=== PATIENT | female | born 1945 | race Caucasian/White ===

== ENCOUNTER 2025-03-17 11:01 | Emergency (ER) | payer MEDICARE, OTHER, SELFPAY ==
[2025-03-17] VITALS (108 sets, daily range): BP systolic 142–223; BP diastolic 68–156; PULSE 90–119; TEMP 36.6–37.2; O2SAT 87–97; BMI 31.2
--- NOTE | 2025-03-17 11:24 | ECG_ITS ---
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 Measurements Intervals [place] Rate: 105 P: 52 CO: 152 QRS: 13 QRSD: 70 T: 42 QT: 328 QTc: 389 Interpretive Statements 1120 Sinus tachycardia 8102 Low QRS voltage in chest leads abnormal ECG No previous ECG available for comparison Electronically Signed On 03-18-2025 12:35:25 EDT by JOSE BRANDT M.D.
--- NOTE | 2025-03-17 11:28 | ED.GENADUL1 ---
HPI HPI - General Adult General Chief complaint: Back Pain/Injury Stated complaint: BACK PAIN Time Seen by Provider: 03/17/25 11:18 Source: patient Mode of arrival: walk-in Limitations: no limitations History of Present Illness HPI narrative: 79-year-old female presents for back pain and hip pain and shoulder pain. She has had hip and shoulder pain for a long time and states it is due to arthritis. She has had no injury. She has been off of all medications for 2 years because she states her doctor moved out of town and she never got another 1. The only medication that she takes is an iron pill and she is not sure why she takes it. She seemed short of breath to the nursing staff upon arrival and ambulation. Related Data Home Medications ?Medication ?Instructions ?Recorded ?Confirmed No Known Home Medications 03/17/25 03/17/25 Allergies Allergy/AdvReac Type Severity Reaction Status Date / Time No Known Drug Allergies Allergy Verified 03/17/25 11:08 Review of Systems ROS Narrative A ten point review of systems is negative except as noted above. [facility] Medical History (Updated 03/17/25 @ 16:17 by Wilfrido Matute MD) Lump in female breast ?N63.0 - Unspecified lump in unspecified breast (ICD-10) Hypertension ?I10 - Essential (primary) hypertension (ICD-10) Social History Little interest or pleasure in doing things: not at all Feeling down, depressed, or hopeless: not at all Exam Narrative Exam Narrative: Nurses note and vital signs reviewed and patient is not hypoxic. General: The patient appears in no apparent distress. Patient is resting comfortably on cart. Skin: Warm, dry, mild pallor noted. There is no rash noted. Head: Normocephalic, atraumatic Eye: No drainage Ears, Nose, Mouth, and Throat: oral mucosa is moist. Nares patent. Cardiovascular: Regular Rate and Rhythm, mildly tachycardic Respiratory: Patient is in no distress, no accessory muscle use, lungs are clear to auscultation, no wheezing, rales or rhonchi Back: non-tender, no CVA tenderness bilaterally to percussion. GI: Soft and nontender Musculoskeletal: The patient has no evidence of calf tenderness, no pitting edema, symmetrical pulses noted bilaterally Neurological: A&O, normal speech Psychiatric: Cooperative Constitutional Vital Signs, click to edit/add: Last Vital Signs Temp 97.8 F 03/17/25 11:05 Pulse 92 H 03/17/25 13:58 Resp 17 03/17/25 13:58 BP 182/95 H 03/17/25 13:58 Pulse Ox 87 L 03/17/25 13:58 O2 Del Method Room Air 03/17/25 11:05 Course Vital Signs Vital signs: Vital Signs Temperature 97.8 F 03/17/25 11:05 Pulse Rate 119 H 03/17/25 11:05 Respiratory Rate 20 03/17/25 11:05 Blood Pressure 223/92 H 03/17/25 11:05 Pulse Oximetry 95 03/17/25 11:05 Oxygen Delivery Method Room Air 03/17/25 11:05 Temperature 97.8 F 03/17/25 11:05 Pulse Rate 92 H 03/17/25 13:58 Respiratory Rate 17 03/17/25 13:58 Blood Pressure 182/95 H 03/17/25 13:58 Pulse Oximetry 87 L 03/17/25 13:58 Oxygen Delivery Method Room Air 03/17/25 11:05 Medical Decision Making MDM Narrative Medical decision making narrative: The patient was found to be anemic with a hemoglobin of 6.7. She has heme positive dark brown stool. She was given 2 units of blood here. She was not hypotensive but rather was hypertensive and was given IV labetalol for that issue. CAT scan of the abdomen and lumbar spine however showed numerous large intraperitoneal masses with an L2 lytic lesion. This is most likely metastatic cancer and this was discussed thoroughly with the patient. She has a full understanding of the issues. She was also given IV Protonix. I have spoken to Misty, nurse practitioner at [facility] under Dr. Marrero, and the patient is excepted there. She is stable and agreeable for transfer. Differential Diagnosis Differential Diagnosis: Lumbar strain, compression fracture, GI bleed, renal failure Lab Data Lab results reviewed: Yes I reviewed the patient's lab results Labs: Lab Results 03/17/25 03/17/25 03/17/25 Range/Units 11:20 12:02 12:27 WBC 14.6 H (4.0-11.0) 10^3/uL RBC 2.76 L (4.20-5.40) 10^6/uL Hgb 6.7 L* (12.0-16.0) g/dL Hct 22.2 L* (36.0-48.0) % MCV 80.4 L (81.0-99.0) fL MCH 24.3 L (26.7-34.0) pg MCHC 30.2 (29.9-35.2) g/dL RDW 15.9 H (11.0-15.0) % Plt Count 550 H (150-450) 10^3/uL MPV 9.0 L (9.5-13.5) fL Neut % (Auto) 77.7 H (43.0-75.0) % Lymph % (Auto) 11.2 L (20.5-60.0) % [place] % (Auto) 7.2 (1.7-12.0) % Eos % (Auto) 2.3 (0.9-7.0) % Baso % (Auto) 0.6 (0.2-2.0) % Neut # (Auto) 11.3 H (1.4-6.5) 10^3/uL Lymph # (Auto) 1.6 (1.2-3.8) 10^3/uL [place] # (Auto) 1.1 H (0.3-0.8) 10^3/uL Eos # (Auto) 0.3 (0.0-0.7) 10^3/uL Baso # (Auto) 0.1 (0.0-0.1) 10^3/uL Abs Immat Gran (auto) 0.14 H (0.00-0.03) 10^3/uL Imm/Tot Granulo (auto) 1.0 H (0.0-0.5) % PT 11.1 (9.0-11.6) sec INR 1.05 APTT 26.8 (22.3-36.2) sec Sodium 133 L (136-145) mmol/L Potassium 3.5 (3.5-5.1) mmol/L Chloride 98 (98-107) mmol/L Carbon Dioxide 24.2 (21.0-32.0) mmol/L Anion Gap 14.3 BUN 21.0 H (7.0-18.0) mg/dL Creatinine 1.12 H (0.55-1.02) mg/dL Est GFR ( Amer) 57 L (>=60 mL/min/1.73m^2) Est GFR (Non-Af Amer) 47 L (>=60 mL/min/1.73m^2) BUN/Creatinine Ratio 18.8 Glucose 181 H (74-106) mg/dL Calcium 8.8 (8.5-10.1) mg/dL Total Bilirubin 0.3 (0.2-1.0) mg/dL Direct Bilirubin 0.1 (0.0-0.2) mg/dL AST 17 (15-37) U/L ALT 13 L (14-59) U/L Alkaline Phosphatase 84 (46-116) U/L Total Protein 7.2 (6.4-8.2) g/dL Albumin 2.4 L (3.4-5.0) g/dL Globulin 4.8 g/dL Albumin/Globulin Ratio 0.5 Urine Color (YELLOW) Urine Clarity (CLEAR) Urine pH (5.0-9.0) Ur Specific [place] (1.005-1.025) Urine Protein (NEG/TRACE) mg/dL Urine Glucose (UA) (NEGATIVE) mg/dL Urine Ketones (NEGATIVE) mg/dL Urine Occult Blood (NEGATIVE) Urine Nitrite (NEGATIVE) Urine Bilirubin (NEGATIVE) Urine Urobilinogen (0.2-1.0) EU/dL Ur Leukocyte Esterase (NEGATIVE) Urine RBC (0-2) #/HPF Urine WBC (NONE SEEN) #/HPF Ur Squamous Epith Cells (NONE/RARE) #/LPF Ur Transition Epith Cell (NONE SEEN) #/LPF Urine Crystals (None Seen) #/HPF Urine Bacteria (NONE SEEN) #/HPF Urine Casts (NONE SEEN) #/LPF Urine Mucus (NONE SEEN) Ur Culture Indicated? Stool Occult Blood Positive A Blood Type AB Positive Antibody Screen Negative Crossmatch See Detail 03/17/25 Range/Units 13:03 WBC (4.0-11.0) 10^3/uL RBC (4.20-5.40) 10^6/uL Hgb (12.0-16.0) g/dL Hct (36.0-48.0) % MCV (81.0-99.0) fL MCH (26.7-34.0) pg MCHC (29.9-35.2) g/dL RDW (11.0-15.0) % Plt Count (150-450) 10^3/uL MPV (9.5-13.5) fL Neut % (Auto) (43.0-75.0) % Lymph % (Auto) (20.5-60.0) % [place] % (Auto) (1.7-12.0) % Eos % (Auto) (0.9-7.0) % Baso % (Auto) (0.2-2.0) % Neut # (Auto) (1.4-6.5) 10^3/uL Lymph # (Auto) (1.2-3.8) 10^3/uL [place] # (Auto) (0.3-0.8) 10^3/uL Eos # (Auto) (0.0-0.7) 10^3/uL Baso # (Auto) (0.0-0.1) 10^3/uL Abs Immat Gran (auto) (0.00-0.03) 10^3/uL Imm/Tot Granulo (auto) (0.0-0.5) % PT (9.0-11.6) sec INR APTT (22.3-36.2) sec Sodium (136-145) mmol/L Potassium (3.5-5.1) mmol/L Chloride (98-107) mmol/L Carbon Dioxide (21.0-32.0) mmol/L Anion Gap BUN (7.0-18.0) mg/dL Creatinine (0.55-1.02) mg/dL Est GFR ( Amer) (>=60 mL/min/1.73m^2) Est GFR (Non-Af Amer) (>=60 mL/min/1.73m^2) BUN/Creatinine Ratio Glucose (74-106) mg/dL Calcium (8.5-10.1) mg/dL Total Bilirubin (0.2-1.0) mg/dL Direct Bilirubin (0.0-0.2) mg/dL AST (15-37) U/L ALT (14-59) U/L Alkaline Phosphatase (46-116) U/L Total Protein (6.4-8.2) g/dL Albumin (3.4-5.0) g/dL Globulin g/dL Albumin/Globulin Ratio Urine Color Dk. orange (YELLOW) Urine Clarity Sl cloudy (CLEAR) Urine pH Color interference A (5.0-9.0) Ur Specific [place] 1.015 (1.005-1.025) Urine Protein Color interference A (NEG/TRACE) mg/dL Urine Glucose (UA) Color interference A (NEGATIVE) mg/dL Urine Ketones Color interference A (NEGATIVE) mg/dL Urine Occult Blood Color interference A (NEGATIVE) Urine Nitrite Color interference A (NEGATIVE) Urine Bilirubin Color interference A (NEGATIVE) Urine Urobilinogen Color interference A (0.2-1.0) EU/dL Ur Leukocyte Esterase Color interference A (NEGATIVE) Urine RBC >100 A (0-2) #/HPF Urine WBC 75-100 A (NONE SEEN) #/HPF Ur Squamous Epith Cells Rare (NONE/RARE) #/LPF Ur Transition Epith Cell Few A (NONE SEEN) #/LPF Urine Crystals None seen (None Seen) #/HPF Urine Bacteria Small A (NONE SEEN) #/HPF Urine Casts None seen (NONE SEEN) #/LPF Urine Mucus Small A (NONE SEEN) Ur Culture Indicated? [facility] [place] Stool Occult Blood Blood Type Antibody Screen Crossmatch Imaging Data CT abdomen, CT lumbar spine: Radiologist's impression: CT abdomen: Multiple mass lesions consistent with neoplastic process, no features to suggest active GI bleed CT lumbar spine: Lymphadenopathy, lytic lesion L2 vertebral body Chest x-ray: Mild enlarged heart size, no lobar consolidation or edema ECG Data Attestation: I personally reviewed and interpreted this ECG as follows: (EKG on my interpretation shows sinus rhythm with a rate of 105 and no acute change) Discharge Plan Discharge Chief Complaint: Back Pain/Injury Clinical Impression: GI bleed, Anemia, Metastatic cancer [facility]position[facility] Time of Disposition Decision: 16:17 Discharge Location: [facility] Condition: Fair Mode of Transportation: EMS
[2025-03-17 11:29] LABS: Basophils Absolute Auto 0.1 10^3/uL (0.0-0.1); Basophils Percent Auto 0.6 % (0.2-2.0); Eosinophils Absolute Auto 0.3 10^3/uL (0.0-0.7); Eosinophils Percent Auto 2.3 % (0.9-7.0); Immature Granulocytes Abs Auto 0.14 10^3/uL (0.00-0.03); Lymphocytes Absolute Auto 1.6 10^3/uL (1.2-3.8); Lymphocytes Percent Auto 11.2 % (20.5-60.0); Mean Corpuscular HGB Conc 30.2 g/dL (29.9-35.2); Mean Corpuscular Hemoglobin 24.3 pg (26.7-34.0); Mean Corpuscular Volume 80.4 fL (81.0-99.0); Monocytes Absolute Auto 1.1 10^3/uL (0.3-0.8); Monocytes Percent Auto 7.2 % (1.7-12.0); Neutrophils Absolute Auto 11.3 10^3/uL (1.4-6.5); Neutrophils Percent Auto 77.7 % (43.0-75.0); Platelet Count 550 10^3/uL (150-450); Red Blood Count 2.76 10^6/uL (4.20-5.40); Red Cell Distribution Width 15.9 % (11.0-15.0); White Blood Count 14.6 10^3/uL (4.0-11.0)
[2025-03-17 11:34] LABS: Hematocrit 22.2 % (36.0-48.0); Hemoglobin 6.7 g/dL (12.0-16.0)
[2025-03-17 11:48] LABS: Anion Gap 14.3; BUN Creatinine Ratio 18.8; Calcium 8.8 mg/dL (8.5-10.1); Carbon Dioxide 24.2 mmol/L (21.0-32.0); Chloride 98 mmol/L (98-107); Estimated GFR (African America 57 (>=60 mL/min/1.73m^2); Estimated GFR (Non-African Ame 47 (>=60 mL/min/1.73m^2); Glucose 181 mg/dL (74-106); INR 1.05; Partial Thromboplastin Time 26.8 sec (22.3-36.2); Potassium 3.5 mmol/L (3.5-5.1); Prothrombin Time 11.1 sec (9.0-11.6); Sodium 133 mmol/L (136-145)
[2025-03-17 11:51] LABS: Bilirubin Total 0.3 mg/dL (0.2-1.0)
[2025-03-17 11:52] LABS: Alanine Aminotransferase 13 U/L (14-59); Albumin Globulin Ratio 0.5; Albumin Level 2.4 g/dL (3.4-5.0); Alkaline Phosphatase 84 U/L (46-116); Aspartate Amino Transferase 17 U/L (15-37); Bilirubin Direct 0.1 mg/dL (0.0-0.2); Globulin 4.8 g/dL; Total Protein 7.2 g/dL (6.4-8.2)
[2025-03-17 12:16] LABS: Internal Control Within Normal Limits; Occult Blood Positive
[2025-03-17 13:27] LABS: Clarity Urine SL CLOUDY (CLEAR); Color Urine DK. ORANGE (YELLOW); Specific Gravity Urine 1.015 (1.005-1.025)
[2025-03-17 13:37] LABS: Bilirubin Urine COLOR INTERFERENCE (NEGATIVE); Blood Urine COLOR INTERFERENCE (NEGATIVE); Glucose Urine UA COLOR INTERFERENCE mg/dL (NEGATIVE); Ketones Urine COLOR INTERFERENCE mg/dL (NEGATIVE); Leukocyte Esterase Urine COLOR INTERFERENCE (NEGATIVE); Nitrite Urine COLOR INTERFERENCE (NEGATIVE); Protein Urine COLOR INTERFERENCE mg/dL (NEG/TRACE); Urobilinogen Urine COLOR INTERFERENCE EU/dL (0.2-1.0); pH Urine COLOR INTERFERENCE (5.0-9.0)
[2025-03-17 13:39] LABS: WBC Urine 75-100 #/HPF (NONE SEEN)
[2025-03-17 13:40] LABS: Bacteria Urine SMALL #/HPF (NONE SEEN); Cast Seen? NONE SEEN #/LPF (NONE SEEN); Crystals Seen? None Seen #/HPF (None Seen); Mucus Urine SMALL (NONE SEEN); RBC Urine >100 #/HPF (0-2); Squamous Epithelial Cell Urine RARE #/LPF (NONE/RARE); Transitional Epi Cells Urine FEW #/LPF (NONE SEEN); Urine Culture Indicated YES-FRMC
[2025-03-17] MEDS: LABETALOL HCL 20 MG/4 ML SYRINGE 10 MG IVP (13:54)
[2025-03-17] MEDS: CEFTRIAXONE 1,000 MG in 0.9 % SODIUM CHLORIDE 50 ML 100 MG IV (15:36)
[2025-03-17] MEDS: PANTOPRAZOLE SODIUM 40 MG VIAL IV (15:36)
[2025-03-17] MEDS: 0.9 % SODIUM CHLORIDE 500 ML 250 ML IV (15:36)
--- NOTE | 2025-03-17 17:30 | PC.NURSE ---
pt given meal tray
[2025-03-17] MEDS: MORPHINE SULFATE 2 MG/ML SYRINGE IV ×2 (18:23→22:23)
[2025-03-17] MEDS: LABETALOL HCL 20 MG/4 ML SYRINGE IVP (23:45)
[2025-03-18] VITALS (16 sets, daily range): BP systolic 170–198; BP diastolic 87–93; PULSE 89–97; O2SAT 90
[2025-03-18] MEDS: MORPHINE SULFATE 2 MG/ML SYRINGE IV (00:47)
[2025-03-18] MEDS: MORPHINE SULFATE 4 MG/ML VIAL IV (01:45)
== END 2025-03-18 01:50 | disposition short-term general hospital (02) ==
PROVIDERS: Emergency Provider Emergency Medicine
DX: K92.2 Gastrointestinal hemorrhage, unspecified (principal); D64.9 Anemia, unspecified; R06.02 Shortness of breath; C79.9 Secondary malignant neoplasm of unspecified site
CPT/HCPCS: 36415; 36430; 71045; 72131; 74177; 80048; 80076; 81001; 85025; 85610; 85730; 86850; 86900; 86901; 86923; 87086; 93005; 96365; 96375; 96376; 99285; G0328; J0696; J1920; J2270; P9016; Q9967

== ENCOUNTER 2025-04-11 16:18 | Inpatient (IN) | payer MEDICARE, OTHER, SELFPAY ==
[2025-04-11] VITALS (7 sets, daily range): BP systolic 121–143; BP diastolic 49–73; PULSE 77; TEMP 36.8; O2SAT 97–98; BMI 35.3; BMI 22.7
--- NOTE | 2025-04-11 16:34 | CT_ITS ---
The [address] [address] Patient Name: MALLIKA CRAWFORD MRN: [id number] date: 1945 Sex: F Assigned Patient Location: ER Current Patient Location: [facility] Accession/Order Number: [id number] Exam Date: 04/11/2025 17:09 Report Date: 04/11/2025 17:14 At the request of: CONNER CADENA NP Procedure: CT head/brain wo con CT head/brain wo con 04/11/2025 4:56 PM SIGNS AND SYMPTOMS: ^ams TECHNIQUE:Multi-detector CT axial slices of the brain were obtained without IV contrast. CT was performed with one or more of the following dose reduction techniques: Automated exposure control, adjustment of the mA and/or kV according to patient size, or use of iterative reconstruction technique. COMPARISON: None. FINDINGS: There is no shift of the midline structures, acute intracranial bleeding, mass effects, or evidence of acute ischemia. There is a calcified dural based extra-axial structure along the lateral aspect of the right middle temporal fossa consistent with a meningioma. This measures 1.4 cm in greatest dimension. Smaller calcified meningioma is noted along the posterior margin of the tentorium on the left measuring 5 mm in greatest dimension. There is periventricular white matter hypoattenuation. There is mild age-related cortical atrophy. Atherosclerotic changes are noted in the intracranial segments of the internal carotid arteries. The ventricular system is normal in size. The brainstem and the cerebellum are unremarkable. The visualized intraorbital contents, the visualized paranasal sinuses, and the infratemporal soft tissues show no acute abnormality. Small bilateral mastoid and middle ear effusions are present. The osseous structures in the skull base and the calvarium show no abnormality. There is a 2.1 cm soft tissue attenuating structure in the left parietal scalp which is of uncertain etiology. CT/CT head/brain wo con IMPRESSION: No acute intracranial pathology. 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 Small bilateral mastoid and middle ear effusions are present. There is a 2.1 cm soft tissue attenuating structure in the left parietal scalp which is of uncertain etiology. Calcified suspected meningiomas are present. Impression dictated by: Corey Rasmussen M.D. 04/11/2025 5:14 PM Dictation Location: [place] [address] Electronically authenticated by: [id number] Y Date: 04/11/2025 17:14
--- NOTE | 2025-04-11 16:34 | XR_ITS ---
[address] [address] Patient Name: MALLIKA CRAWFORD MRN: [id number] date: 1945 Sex: F Assigned Patient Location: ER Current Patient Location: ED.MAIN Accession/Order Number: [id number] Exam Date: 04/11/2025 17:07 Report Date: 04/11/2025 17:09 At the request of: CONNER CADENA NP Procedure: XR chest 1V XR chest 1V 04/11/2025 4:51 PM SIGNS AND SYMPTOMS: ^ams ^Y PROTOCOL: Frontal radiograph of the chest COMPARISON: 03/17/2025 FINDINGS: The trachea is midline. The heart and mediastinal structures are within normal limits. Mild platelike atelectasis or scarring is noted in the right lung base. The lung parenchyma is clear otherwise. The bony thorax is intact. Degenerative changes are noted in the shoulders and thoracic spine. XR/XR chest 1V IMPRESSION: Mild platelike atelectasis or scarring is noted in the right lung base. The lung parenchyma is clear otherwise. Impression dictated by: Corey Rasmussen M.D. 04/11/2025 5:09 PM Dictation Location: [place] [address] Electronically authenticated by: [id number] Y Date: 04/11/2025 17:09
--- NOTE | 2025-04-11 16:37 | ED.GENADUL1 ---
HPI HPI - General Adult General Chief complaint: Weakness Stated complaint: weakness Time Seen by Provider: 04/11/25 16:25 Source: family Mode of arrival: ambulance History of Present Illness HPI narrative: Patient is a 79-year-old female who presents to the emergency department today for evaluation concerns for altered mental status and refusing oral intake. Patient is at a acute rehab facility and was brought in by EMS. Patient is not able to provide much history due to current medical state and is mostly answering only yes or no questions. Patient's daughter is at the bedside and states within the past month she has developed back pain secondary to degenerative changes. 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 Daughter states she was discharged from [facility] to an acute rehab facility with the plan to have outpatient follow-up with the [facility]. Patient's daughter reports she had an appointment with the [facility] on Wednesday with the plan to start immunotherapy however the patient's daughter mentions since then she has been progressively more weak and confused since yesterday does not recognize the daughter. Patient does endorse some abdominal pain and per review of MAR from nursing facility patient did receive oxycodone at 1 AM. Both the patient and her daughter deny any additional sick symptoms of fever/chills, cough/cold symptoms, vomiting, or diarrhea. Any chest pain or shortness of breath. Related Data Home Medications ?Medication ?Instructions ?Recorded ?Confirmed acetaminophen 500 mg capsule 1,000 mg PO Q6H PRN pain 04/11/25 04/11/25 carvedilol 25 mg tablet (Coreg) 25 mg PO BID 04/11/25 04/11/25 coenzyme Q10 100 mg capsule (Co 100 mg PO DAILY 04/11/25 04/11/25 Q-10) docusate sodium 100 mg capsule 100 mg PO BID 04/11/25 04/11/25 (Colace) guaifenesin 600 mg tablet, 600 mg PO BID PRN congestion 04/11/25 04/11/25 extended release 12 hr ipratropium 0.5 mg-albuterol 3 mg 3 ml inhalation Q4H PRN shortness 06/04/25 06/04/25 (2.5 mg base)/3 mL nebulization of breath soln lidocaine 4 % topical patch 1 patch topical DAILY PRN pain 04/11/25 04/11/25 (Lidocare) naloxone 4 mg/actuation nasal 1 spray intranasal Q2M PRN opioid 04/11/25 04/11/25 spray (Narcan) analgesic ondansetron 4 mg disintegrating 4 mg PO TID-QID PRN nausea and 04/11/25 04/11/25 tablet vomiting oxycodone 5 mg tablet 2.5 mg PO Q6H 04/11/25 04/11/25 pantoprazole 40 mg tablet,delayed 40 mg PO BID 04/11/25 04/11/25 release polyethylene glycol 3350 17 17 g PO DAILY 04/11/25 04/11/25 gram/dose oral powder (Miralax) Allergies Allergy/AdvReac Type Severity Reaction Status Date / Time No Known Drug Allergies Allergy Verified 04/11/25 16:24 Opioid HPI Opioid Management Most Recent Opioid Data: Last Pain Scale 8 03/18/25, 01:34 Review of Systems ROS Narrative ROS limited due to patient's mental capacity, some history and ROS provided by patient's daughter who was at the bedside [facility] Medical History (Updated 04/11/25 @ 18:33 by Yulisa Whelan RN) Acute hemorrhoid ?K64.9 - Unspecified hemorrhoids (ICD-10) Cardiac murmur ?R01.1 - Cardiac murmur, unspecified (ICD-10) Diverticulitis ?K57.92 - Diverticulitis of intestine, part unspecified, without perforation or abscess without bleeding (ICD-10) Gastric ulcer ?K25.9 - Gastric ulcer, unspecified as acute or chronic, without hemorrhage or perforation (ICD-10) Type 2 diabetes mellitus ?E11.9 - Type 2 diabetes mellitus without complications (ICD-10) Uterine cancer ?C55 - Malignant neoplasm of uterus, part unspecified (ICD-10) Lump in female breast ?N63.0 - Unspecified lump in unspecified breast (ICD-10) Hypertension ?I10 - Essential (primary) hypertension (ICD-10) Social History Little interest or pleasure in doing things: not at all Feeling down, depressed, or hopeless: not at all Exam Narrative Exam Narrative: Constituational: Awake/ alert, no apparent distress, well hydrated HENMT: normocephalic, external ears normal, moist oral mucous membranes and oropharynx normal Eyes: Pupils 2mm bilaterally, EOMI and conjunctivae normal Neck: ROM intact Chest: inspection of chest normal Respiratory: Normal respiratory effort, clear to auscultation bilaterally Cardio: regular rate and regular rhythm GI: + Large, round, mild generalized discomfort, soft to palpation MSK: No edema, Generalized weakness with inability to reposition herself, +NVI Skin: no rashes or petechiae Neuro: no focal deficits Psych: Withdrawn, sedated Constitutional Vital Signs, click to edit/add: Last Vital Signs Temp 98.3 F 04/11/25 16:24 Pulse 77 04/11/25 16:24 Resp 20 04/11/25 16:24 BP 138/73 04/11/25 16:24 Pulse Ox 97 04/11/25 16:24 O2 Del Method Room Air 04/11/25 16:24 Course Vital Signs Vital signs: Vital Signs Temperature 98.3 F 04/11/25 16:24 Pulse Rate 77 04/11/25 16:24 Respiratory Rate 20 04/11/25 16:24 Blood Pressure 138/73 04/11/25 16:24 Pulse Oximetry 97 04/11/25 16:24 Oxygen Delivery Method Room Air 04/11/25 16:24 Temperature 98.3 F 04/11/25 16:24 Pulse Rate 77 04/11/25 16:24 Respiratory Rate 20 04/11/25 16:24 Blood Pressure 138/73 04/11/25 16:24 Pulse Oximetry 97 04/11/25 16:24 Oxygen Delivery Method Room Air 04/11/25 16:24 Medical Decision Making [facility] Narrative Medical decision making narrative: The patient is a mildly ill-appearing 79-year-old female with significant recent history of diagnosis of uterine cancer with breast metastasis currently at a acute rehab facility who presented to the emergency department today for evaluation concerns for generalized weakness and concerns for reduced oral intake and altered mental status. Initial examination vital signs overall stable with exception patient does have some generalized weakness where she is unable to reposition herself in the bed. She is alert and oriented to herself and is answering some yes and no questions otherwise. She does appear somewhat sedated however she is not in any respiratory distress and vital signs are stable. Has been receiving oxycodone for her abdominal pain. CT head without critical findings. Chest x-ray additionally stable. Labs significant for leukocytosis with WBCs 24, noted anemia with Hgb 7.4, stable per prior trends, HCT 23.9 that additionally is stable per prior trend, no thrombocytopenia. Electrolytes including hepatic function overall stable. Patient noted to have elevated renal function with BUN of 79 and creatinine 2.07. Urinalysis is negative for UTI however patient was unable to void on her own and Bedoya catheter was placed for I/O purposes and per nursing patient did have over 1700 mL output. Patient was reevaluated multiple times while in the emergency department and had no significant changes in condition. She has otherwise remained hemodynamically stable. Clinical impression generalized weakness, AMS-possible oversedation of opioid analgesics, and ZION in the setting of poor oral intake and urinary retention. Discussed patient's condition with [facility] hospitalist [id number] -> accepts patient for admission. Discussed the above findings and recommendations with the patient's family who was present at the bedside. Patient's family is agreeable with the plan to be admitted for further care of the above. Medical Records Medical records reviewed: Yes I reviewed the patient's medical records Lab Data Lab results reviewed: Yes I reviewed the patient's lab results Labs: Lab Results 04/11/25 04/11/25 Range/Units 17:07 17:30 WBC 24.8 H (4.0-11.0) 10^3/uL RBC 2.78 L (4.20-5.40) 10^6/uL Hgb 7.4 L (12.0-16.0) g/dL Hct 23.9 L* (36.0-48.0) % MCV 86.0 (81.0-99.0) fL MCH 26.6 L (26.7-34.0) pg MCHC 31.0 (29.9-35.2) g/dL RDW 19.1 H (11.0-15.0) % Plt Count 432 (150-450) 10^3/uL MPV 9.2 L (9.5-13.5) fL Seg Neuts % (Manual) 85.0 H (43.0-75.0) Band Neutrophils % 5.0 (0-5) % Lymphocytes % (Manual) 8.0 L (20.5-60.0) % Monocytes % (Manual) 1.0 L (1.7-12.0) % Eosinophils % (Manual) 1.0 (0.9-7.0) % Basophils % (Manual) 0.0 L (0.2-2.0) % Neutrophils # (Manual) 21.08 H (1.4-6.5) 10^3/uL Band Neutrophils # 1.2 H (0.0-0.3) 10^3/uL Lymphocytes # (Manual) 1.98 (1.20-3.80) 10^3/uL Monocytes # (Manual) 0.24 L (0.30-0.80) 10^3/uL Eosinophils # (Manual) 0.24 (0.00-0.70) 10^3/uL Basophils # (Manual) 0.00 (0.00-0.10) 10^3/uL Sodium 134 L (136-145) mmol/L Potassium 6.0 H (3.5-5.1) mmol/L Chloride 95 L (98-107) mmol/L Carbon Dioxide 15.4 L (21.0-32.0) mmol/L Anion Gap 29.6 BUN 79.0 H* (7.0-18.0) mg/dL Creatinine 2.07 H (0.55-1.02) mg/dL Est GFR ( Amer) 28 L (>=60 mL/min/1.73m^2) Est GFR (Non-Af Amer) 23 L (>=60 mL/min/1.73m^2) BUN/Creatinine Ratio 38.2 Glucose 109 H (74-106) mg/dL Calcium 9.6 (8.5-10.1) mg/dL Total Bilirubin 0.3 (0.2-1.0) mg/dL AST 27 (15-37) U/L ALT 8 L (14-59) U/L Alkaline Phosphatase 108 (46-116) U/L Total Protein 6.2 L (6.4-8.2) g/dL Albumin 1.7 L (3.4-5.0) g/dL Globulin 4.5 g/dL Albumin/Globulin Ratio 0.4 Urine Color Yellow (YELLOW) Urine Clarity Clear (CLEAR) Urine pH 5.5 (5.0-9.0) Ur Specific [place] 1.015 (1.005-1.025) Urine Protein Negative (NEG/TRACE) mg/dL Urine Glucose (UA) Negative (NEGATIVE) mg/dL Urine Ketones Negative (NEGATIVE) mg/dL Urine Occult Blood Negative (NEGATIVE) Urine Nitrite Negative (NEGATIVE) Urine Bilirubin Negative (NEGATIVE) Urine Urobilinogen 0.2 (0.2-1.0) EU/dL Ur Leukocyte Esterase Negative (NEGATIVE) Urine RBC 0-2 (0-2) #/HPF Urine WBC None seen (NONE SEEN) #/HPF Ur Squamous Epith Cells None seen (NONE/RARE) #/LPF Urine Crystals None seen (None Seen) #/HPF Urine Bacteria None seen (NONE SEEN) #/HPF Urine Casts None seen (NONE SEEN) #/LPF Urine Mucus None seen (NONE SEEN) Ur Culture Indicated? No Imaging Data Chest x-ray: Attestation: I have reviewed the pertinent imaging results. Radiologist's impression: ITS Impressions Chest X-Ray 04/11/25 16:34 IMPRESSION: Mild platelike atelectasis or scarring is noted in the right lung base. The lung parenchyma is clear otherwise. Impression dictated by: Corey Rasmussen M.D. 04/11/2025 5:09 PM Dictation Location: [facility] Electronically authenticated by: [id number] Y Date: 04/11/2025 17:[address] 04/11/25 16:34 IMPRESSION: No acute intracranial pathology. 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 Small bilateral mastoid and middle ear effusions are present. There is a 2.1 cm soft tissue attenuating structure in the left parietal scalp which is of uncertain etiology. Calcified suspected meningiomas are present. Impression dictated by: Corey Rasmussen M.D. 04/11/2025 5:14 PM Dictation Location: [facility] Electronically authenticated by: [id number] Y Date: 04/11/2025 17:14 CT scan - head: Attestation: I have reviewed the pertinent imaging results. Radiologist's impression: ITS Impressions Chest X-Ray 04/11/25 16:34 IMPRESSION: Mild platelike atelectasis or scarring is noted in the right lung base. The lung parenchyma is clear otherwise. Impression dictated by: Corey Rasmussen M.D. 04/11/2025 5:09 PM Dictation Location: [facility] Electronically authenticated by: [id number] Y Date: 04/11/2025 17:[address] 04/11/25 16:34 IMPRESSION: No acute intracranial pathology. 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 Small bilateral mastoid and middle ear effusions are present. There is a 2.1 cm soft tissue attenuating structure in the left parietal scalp which is of uncertain etiology. Calcified suspected meningiomas are present. Impression dictated by: Corey Rasmussen M.D. 04/11/2025 5:14 PM Dictation Location: [facility] Electronically authenticated by: [id number] Y Date: 04/11/2025 17:14 Discharge Plan Discharge Chief Complaint: Weakness Clinical Impression: Generalized weakness, Altered mental status, ZION (acute kidney injury) Prescriptions / Home Meds: No Action acetaminophen 500 mg capsule 1,000 mg PO Q6H PRN (Reason: pain) docusate sodium [Colace] 100 mg capsule 100 mg PO BID coenzyme Q10 [Co Q-10] 100 mg capsule 100 mg PO DAILY carvedilol [Coreg] 25 mg tablet 25 mg PO BID Rx Instructions: must administer with a meal/food guaifenesin 600 mg tablet extended release 12hr 600 mg PO BID PRN (Reason: congestion) lidocaine [Lidocare] 4 % adhesive patch,medicated 1 patch topical DAILY PRN (Reason: pain) ipratropium-albuterol 0.5 mg-3 mg(2.5 mg base)/3 mL solution for nebulization 3 ml inhalation Q4H PRN (Reason: shortness of breath) polyethylene glycol 3350 [Miralax] 17 gram/dose powder 17 g PO DAILY naloxone [Narcan] 4 mg/actuation spray,non-aerosol 1 spray intranasal Q2M PRN (Reason: opioid analgesic) Rx Instructions: spray 1 dose into ONE nostril; alternate nostrils w each dose until help arrives ondansetron 4 mg tablet,disintegrating 4 mg PO TID-QID PRN (Reason: nausea and vomiting) oxycodone 5 mg tablet 2.5 mg PO Q6H Rx Instructions: hold for lethargy pantoprazole 40 mg tablet,delayed release (DR/EC) 40 mg PO BID Print Language: Turkmen Referrals: Physician,Non-Staff, MD [Primary Care Provider] - 1 week
[2025-04-11 17:13] LABS: Hemoglobin 7.4 g/dL (12.0-16.0); Mean Corpuscular Hemoglobin 26.6 pg (26.7-34.0); Mean Platelet Volume 9.2 fL (9.5-13.5); Platelet Count 432 10^3/uL (150-450); Red Blood Count 2.78 10^6/uL (4.20-5.40); Red Cell Distribution Width 19.1 % (11.0-15.0); White Blood Count 24.8 10^3/uL (4.0-11.0)
[2025-04-11 17:23] LABS: Hematocrit 23.9 % (36.0-48.0)
[2025-04-11 17:30] LABS: Band Neutrophils Absolute 1.2 10^3/uL (0.0-0.3); Eosinophils Absolute Manual 0.24 10^3/uL (0.00-0.70); Lymphocytes Absolute Manual 1.98 10^3/uL (1.20-3.80); Monocytes Absolute Manual 0.24 10^3/uL (0.30-0.80); Segmented Neut Absolute Manual 21.08 10^3/uL (1.4-6.5)
[2025-04-11 17:31] LABS: Alanine Aminotransferase 8 U/L (14-59); Albumin Globulin Ratio 0.4; Albumin Level 1.7 g/dL (3.4-5.0); Alkaline Phosphatase 108 U/L (46-116); Anion Gap 29.6; Aspartate Amino Transferase 27 U/L (15-37); BUN Creatinine Ratio 38.2; Bilirubin Total 0.3 mg/dL (0.2-1.0); Calcium 9.6 mg/dL (8.5-10.1); Carbon Dioxide 15.4 mmol/L (21.0-32.0); Chloride 95 mmol/L (98-107); Estimated GFR (African America 28 (>=60 mL/min/1.73m^2); Estimated GFR (Non-African Ame 23 (>=60 mL/min/1.73m^2); Globulin 4.5 g/dL; Glucose 109 mg/dL (74-106); Sodium 134 mmol/L (136-145); Total Protein 6.2 g/dL (6.4-8.2)
[2025-04-11 17:35] LABS: Bilirubin Urine NEGATIVE (NEGATIVE); Blood Urine NEGATIVE (NEGATIVE); Clarity Urine CLEAR (CLEAR); Color Urine YELLOW (YELLOW); Glucose Urine UA NEGATIVE (NEGATIVE); Ketones Urine NEGATIVE (NEGATIVE); Leukocyte Esterase Urine NEGATIVE (NEGATIVE); Nitrite Urine NEGATIVE (NEGATIVE); Protein Urine NEGATIVE (NEG/TRACE); Specific Gravity Urine 1.015 (1.005-1.025); Urobilinogen Urine 0.2 EU/dL (0.2-1.0); pH Urine 5.5 (5.0-9.0)
--- NOTE | 2025-04-11 17:35 | PC.NURSE ---
critical hematocrit of 23.7 reported to Messi DOE
[2025-04-11 17:43] LABS: Bacteria Urine NONE SEEN #/HPF (NONE SEEN); Cast Seen? NONE SEEN #/LPF (NONE SEEN); Crystals Seen? None Seen #/HPF (None Seen); Mucus Urine NONE SEEN (NONE SEEN); RBC Urine 0-2 #/HPF (0-2); Squamous Epithelial Cell Urine NONE SEEN #/LPF (NONE/RARE); Urine Culture Indicated NO; WBC Urine NONE SEEN #/HPF (NONE SEEN)
--- NOTE | 2025-04-11 18:11 | PC.NURSE ---
initial urine outpt from catheter, 1700ml.
[2025-04-11] MEDS: 0.9 % SODIUM CHLORIDE 1,000 ML 1000 ML IV (18:18)
--- NOTE | 2025-04-11 20:26 | CT_ITS ---
The [address] [address] Patient Name: MALLIKA CRAWFORD MRN: [id number] date: 1945 Sex: F Assigned Patient Location: [place] Current Patient Location: [place] Accession/Order Number: [id number] Exam Date: 04/11/2025 21:02 Report Date: 04/11/2025 21:15 At the request of: JANNY SÁNCHEZ MD Procedure: CT abdomen pelvis wo con CT Abdomen and Pelvis withoutcontrast TECHNIQUE: Axial imaging with 2-D reconstruction. . The CT exam was performed using one or more the following dose reduction techniques: Automated exposure control, adjustment of the MA and/or Kv according to patient size, or use of the iterative reconstruction technique. COMPARISON: 03/17/2025 History: Altered mental status. Elevated white blood cell count. History of uterine cancer. History of bilateral lumpectomy LIMITATIONS: None LOWER THORAX mild cardiomegaly and basilar atelectasis. 2.6 cm mass in the right lateral chest wall/breast has developed. LIVER: Hepatic cysts GALLBLADDER: Distended gallbladder measuring up to 5.5 cm. 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 AORTA: No abdominal aortic aneurysm identified. RETROPERITONEUM: A mildly enlarged retroperitoneal lymph nodes. MESENTERY:Unremarkable SMALL BOWEL: The small bowel loops are nondistended. APPENDIX: The appendix is normal. COLON: Unremarkable URINARY BLADDER: Bedoya catheter in urinary bladder. There is mild distention of the urinary bladder. REPRODUCTIVE SYSTEM: Multiple heterogeneous mass lesions central pelvis and left lower pelvis near the left inguinal canal and within the left retroperitoneum in the anterior abdomen consistent with neoplasm. This is increased in size from prior examination suggesting progression. Enlarging inguinal lymph nodes greater on the left. Largest measures up to 3.7 cm. progression of metastatic disease. PNEUMOPERITONEUM: None PERITONEAL FLUID:Mild ascites BONY STRUCTURES: Unremarkable ABDOMINAL WALL: Small fat-containing umbilical hernia. Developing extensive body wall edema. CT/CT abdomen pelvis wo con IMPRESSION: Redemonstration of findings of uterine cancer with an numerous pelvic and lower abdominal masses with interval enlargement suggesting progression. Development of inguinal adenopathy greater on the left measuring up to 3.7 cm. Suggesting progression of disease. Interval distention of the gallbladder with diameter up to 5.5 cm. May consider gallbladder hydrops. Development of 2.6 cm right lateral chest wall/breast mass. Progression of disease. Development of extensive anasarca. Impression dictated by: Rolando Blankenship M.D. 04/11/2025 9:15 PM Dictation Location: [place] [address] Electronically authenticated by: [id number] Y Date: 04/11/2025 21:15
[2025-04-11] MEDS: 0.9 % SODIUM CHLORIDE 1,000 ML 75 ML IV (21:26)
[2025-04-11 23:37] LABS: C Reactive Protein 18.72 mg/dL (<=0.50)
[2025-04-11 23:46] LABS: Lactate/Lactic Acid 0.8 mmol/L (0.4-2.0)
[2025-04-11] MEDS: METRONIDAZOLE/SODIUM CHLORIDE 500 MG/100 ML PREMIX 100 MG IV (23:56)
[2025-04-12] VITALS (16 sets, daily range): BP systolic 115–147; BP diastolic 47–75; PULSE 74–90; TEMP 36.4–37.1; O2SAT 92–95
[2025-04-12] MEDS: CEFTAZIDIME 2,000 MG in 0.9 % SODIUM CHLORIDE 100 ML 200 MG IV ×2 (01:02→20:43)
[2025-04-12 05:31] LABS: Basophils Absolute Auto 0.1 10^3/uL (0.0-0.1); Basophils Percent Auto 0.2 % (0.2-2.0); Eosinophils Absolute Auto 0.2 10^3/uL (0.0-0.7); Eosinophils Percent Auto 0.9 % (0.9-7.0); Immature Granulocytes Abs Auto 0.34 10^3/uL (0.00-0.03); Immature Granulocytes Pct Auto 1.4 % (0.0-0.5); Lymphocytes Absolute Auto 1.3 10^3/uL (1.2-3.8); Lymphocytes Percent Auto 5.4 % (20.5-60.0); Mean Corpuscular HGB Conc 30.5 g/dL (29.9-35.2); Mean Corpuscular Hemoglobin 26.4 pg (26.7-34.0); Mean Corpuscular Volume 86.4 fL (81.0-99.0); Monocytes Absolute Auto 1.9 10^3/uL (0.3-0.8); Monocytes Percent Auto 7.5 % (1.7-12.0); Neutrophils Percent Auto 84.6 % (43.0-75.0); Platelet Count 398 10^3/uL (150-450); Red Blood Count 2.58 10^6/uL (4.20-5.40); Red Cell Distribution Width 19.1 % (11.0-15.0); White Blood Count 24.8 10^3/uL (4.0-11.0)
[2025-04-12 05:46] LABS: INR 1.14; Partial Thromboplastin Time 30.6 sec (22.3-36.2); Prothrombin Time 11.9 sec (9.0-11.6)
[2025-04-12 05:48] LABS: Ammonia 32 umol/L (11-32)
[2025-04-12 05:52] LABS: Alanine Aminotransferase 10 U/L (14-59); Albumin Globulin Ratio 0.4; Albumin Level 1.5 g/dL (3.4-5.0); Alkaline Phosphatase 94 U/L (46-116); Anion Gap 30.9; Aspartate Amino Transferase 25 U/L (15-37); BUN Creatinine Ratio 37.6; Bilirubin Total 0.3 mg/dL (0.2-1.0); Calcium 9.2 mg/dL (8.5-10.1); Carbon Dioxide 10.8 mmol/L (21.0-32.0); Chloride 99 mmol/L (98-107); Estimated GFR (African America 28 (>=60 mL/min/1.73m^2); Estimated GFR (Non-African Ame 23 (>=60 mL/min/1.73m^2); Globulin 4.1 g/dL; Glucose 108 mg/dL (74-106); Magnesium 2.1 mg/dL (1.8-2.4); Potassium 5.7 mmol/L (3.5-5.1); Sodium 135 mmol/L (136-145); Total Protein 5.6 g/dL (6.4-8.2)
[2025-04-12 06:12] LABS: Hematocrit 22.3 % (36.0-48.0); Hemoglobin 6.8 g/dL (12.0-16.0)
--- NOTE | 2025-04-12 06:40 | P.HP_ITS ---
HPI H&P: HPI History of Present Illness Chief complaint: Generalized weakness AMA ZION Narrative: Has a long way, outlined nicely through the emergency room, basically found to have metastatic disease transferred to a tertiary care facility with found to have uterine cancer with metastasis, she was sent to rehab to get stronger so that she could undergo immunotherapy, unable to do immunotherapy while she is in rehab, over the last week patient has had a considerable decline each day with getting weaker and weaker, patient presented to emergency room found to have significant leukocytosis with bandemia and acute kidney injury secondary to sepsis When I saw patient up in the floor this morning, patient is essentially unresponsive, she did respond the severe deep palpation of the abdomen which apparently is tender, not respond to verbal or other stimuli, discussed case with the daughter, patient states that is not her baseline although thought she been progressing over the last week Opioid HPI Opioid Management Most Recent Pain and Opioid Data: Last Pain Scale 8 03/18/25, 01:34 Last Pain Assessment 04/11/25, 21:00 Last ORT Total Score 0 04/11/25, 20:39 Last ORT Risk Category Low Risk 04/11/25, 20:39 Review of Systems ROS Status of ROS 10 or more systems reviewed and unremark able except as noted in history and below [facility] Medical History (Updated 04/12/25 @ 09:56 by Chapo Lagunas MD) Acute hemorrhoid ?K64.9 - Unspecified hemorrhoids (ICD-10) Cardiac murmur ?R01.1 - Cardiac murmur, unspecified (ICD-10) Diverticulitis ?K57.92 - Diverticulitis of intestine, part unspecified, without perforation or abscess without bleeding (ICD-10) Gastric ulcer ?K25.9 - Gastric ulcer, unspecified as acute or chronic, without hemorrhage or perforation (ICD-10) Type 2 diabetes mellitus ?E11.9 - Type 2 diabetes mellitus without complications (ICD-10) Uterine cancer ?C55 - Malignant neoplasm of uterus, part unspecified (ICD-10) Lump in female breast ?N63.0 - Unspecified lump in unspecified breast (ICD-10) Hypertension ?I10 - Essential (primary) hypertension (ICD-10) Social History (Updated 04/11/25 @ 20:12 by Jihan Mccann) Within the past year, how often did you have a drink containing alcohol: never Score interpretation: A score less than 3 is consistent with normal alcohol consumption. Smoking status: Never smoker Non-prescribed substance use: denies use Previous occupational history: retired Are you now , , , , never or living with a partner: don't know Little interest or pleasure in doing things: not at all Feeling down, depressed, or hopeless: not at all Feel stressed/tense/nervous/anxious/difficulty sleeping: not at all Do you think of yourself as: straight/heterosexual Gender Identity: female Meds Home Medications and Allergies Home Medications ?Medication ?Instructions ?Recorded ?Confirmed ?Type acetaminophen 500 mg capsule 1,000 mg PO Q6H PRN pain 04/11/25 04/11/25 History carvedilol 25 mg tablet (Coreg) 25 mg PO BID 04/11/25 04/11/25 History coenzyme Q10 100 mg capsule (Co 100 mg PO DAILY 04/11/25 History Q-10) docusate sodium 100 mg capsule 100 mg PO BID 04/11/25 04/11/25 History (Colace) guaifenesin 600 mg tablet, 600 mg PO BID PRN congestio n 04/11/25 04/11/25 History extended release 12 hr ipratropium 0.5 mg-albuterol 3 mg 3 ml inhalation Q4H PRN shortness 04/11/25 04/11/25 History (2.5 mg base)/3 mL nebulization of breath soln lidocaine 4 % topical patch 1 patch topical DAILY PRN pain 04/11/25 04/11/25 History (Lidocare) naloxone 4 mg/actuation nasal 1 spray intranasal Q2M P RN opioid 04/11/25 04/11/25 History spray (Narcan) analgesic ondansetron 4 mg disintegrating 4 mg PO TID-QID PRN na usea and 04/11/25 04/11/25 History tablet vomiting oxycodone 5 mg tablet 2.5 mg PO Q6H 04/11/2504/11 History pantoprazole 40 mg tablet,delayed 40 mg PO BID 5 04/11/25 History release polyethylene glycol 3350 17 17 g PO DAILY 04/11/2503/02 History gram/dose oral powder (Miralax) Allergies Allergy/AdvReac Type Severity Reaction Status Date / Time No Known Drug Allergies Allergy Verified 04/11/25 16:24 Exam Constitutional Vital Signs, click to edit/add: Last Vital Signs Temp 97.5 F L 04/12/25 04:00 Pulse 88 04/12/25 04:00 Resp 20 04/12/25 04:00 BP 138/54 04/12/25 04:00 Pulse Ox 94 L 04/12/25 04:28 O2 Del Method Room Air 04/12/25 04:28 Documenting provider has reviewed patient's vital signs: yes Common normals: apparent distress (Unresponsive except to painful stimuli) Chest Common normals: inspection of chest normal Respiratory Common normals: abnormal respiratory effort (Mild respiratory distress) and not clear to ascultation bilaterally Auscultation: rales Cardio Common normals: regular rate and regular rhythm; murmurs detected GI Common normals: Normal to inspection, nondistended, normoactive bowel sounds present; negative for soft to palpation (Firm abdomen) and tender (Diffusely tender) Extremity Common normals: abnormal to inspection (1+ edema) Neuro Common normals: not oriented x3 and CN's II-XII not intact bilaterally (Unable to assess) Sensorium/orientation: orientation impaired, lethargic, somnolent and obtunded; not awake, not alert, not oriented to person, not oriented to place and not oriented to time Results Labs Labs: Short CBC 04/11/25 04/12/25 Range/Units 17:07 05:23 WBC 24.8 H 24.8 H (4.0-11.0) 10^3/uL Hgb 7.4 L 6.8 L* (12.0-16.0) g/dL Hct 23.9 L* 22.3 L* (36.0-48.0) % Plt Count 432 398 (150-450) 10^3/uL BMP 04/11/25 04/12/25 17:07 05:23 Sodium 134 L 135 L Potassium 6.0 H 5.7 H Chloride 95 L 99 Carbon Dioxide 15.4 L 10.8 L BUN 79.0 H* 79.0 H* Creatinine 2.07 H 2.10 H Glucose 109 H 108 H Calcium 9.6 9.2 Liver Function 04/11/25 04/12/25 Range/Units 17:07 05:23 Total Bilirubin 0.3 0.3 (0.2-1.0) mg/dL AST 27 25 (15-37) U/L ALT 8 L 10 L (14-59) U/L Alkaline Phosphatase 108 94 (46-116) U/L Albumin 1.7 L 1.5 L (3.4-5.0) g/dL Urine 04/11/25 Range/Units 17:30 Urine Color Yellow (YELLOW) Urine Clarity Clear (CLEAR) Urine pH 5.5 (5.0-9.0) Ur Specific [place] 1.015 (1.005-1.025) Urine Protein Negative (NEG/TRACE) mg/dL Urine Glucose (UA) Negative (NEGATIVE) mg/dL Assessment and Plan Assessment and Plan (1) ZION (acute kidney injury): (2) Altered mental status: (3) Generalized weakness: (4) Metastatic cancer: (5) Anemia: (6) GI bleed: (7) Cardiac murmur: (8) Gastric ulcer: (9) Type 2 diabetes mellitus: (10) Uterine cancer: (11) Hypertension: (12) Hyperphosphatemia: (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: (14) Coagulopathy: (15) Acute pancreatitis: (16) Hyperkalemia: (17) Hyponatremia: (18) Bandemia: (19) Leukocytosis: (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: (21) Bladder outlet obstruction: Plan Admission findings: Altered mental status, leukocytosis with bandemia, hyponatremia, acute kidney injury stage I, (, baseline creatinine 1.12, creatinine on admission of 2.07 which is 184.8% above baseline with decreased urine output in the last 6 hours with palpation at stage I acute kidney injury), hyperkalemia, elevated lipase, elevated INR and an elevated BNP consistent with sepsis causing multisystem organ dysfunction, source of infection likely intra- abdominal with the abdominal exam as outlined above, complicated by immune deficiency from metastatic uterine cancer Altered mental status due to sepsis, likely intra-abdominal source,-leukocytosis persisting, adjusted antibiotic dosing to higher level, blood cultures pending, ultrasound of abdomen is pending, check lactate also, suspicious for possible severe sepsis with positive lactate, initial lactate negative Acute combined congestive heart failure with heart murmur-check echocardiogram concern for cardiac tamponade with metastatic disease, high-sensitivity troponin is negative Hyponatremia secondary to fluid status-monitor daily Acute kidney injury stage I as outlined above-patient will require transfusion we will hold off on further IV fluids in light of the acute combined congestive heart failure Hyperkalemia-improved some, continue to monitor, repeat CHEM profile at noon Acute pancreatitis-discussed with daughter no history of pancreatitis in the past, may be related to metastatic disease, CT scan was unremarkable for the pancreas ultrasound is pending, n.p.o. status Coagulopathy secondary to sepsis as outlined above-monitor daily Bladder outlet obstruction-over 1000 cc-maintain Bedoya catheter Hyperphosphatemia-likely secondary to the acute kidney injury-repeat in a.m. Acute blood loss anemia-likely GI source-check stool for occult blood, type cross and transfuse 2 units History of hypertension-holding current antihypertensive medications CODE STATUS-discussed with daughter, CODE STATUS would be DNR-CCA Admission status: Patient was admitted with altered mental status, progressively worsened overnight time, diagnosed with sepsis, likely severe all the labs are still pending, with acute kidney injury, likely intra-abdominal source with acute pancreatitis, complicated by [place] by immune deficiency secondary to metastatic uterine cancer, medically necessary treatment will span 2 midnights, As a minimum, inpatient status Urinary Catheter Management Urinary Catheter Management Urethral: Cath placed during this visit: yes Urethral indwelling: Yes Reason for continuing: acute urinary retention Insertion date: 04/11/25
[2025-04-12 07:08] LABS: Thyroid Stimulating Hormone 9.684 uIU/mL (0.358-3.740)
[2025-04-12 07:09] LABS: Troponin I High Sensitivity 6.3 pg/mL (4.0-51.3)
--- NOTE | 2025-04-12 07:09 | US_ITS ---
[address] [address] Patient Name: MALLIKA CRAWFORD MRN: [id number] date: 1945 Sex: F Assigned Patient Location: Current Patient Location: Accession/Order Number: [id number] Exam Date: 04/12/2025 10:04 Report Date: 04/12/2025 10:10 At the request of: ALEXANDR BOWMAN MD Procedure: US abdomen limited CLINICAL DATA: Ascites. Dilated gallbladder. History of uterine cancer. LIMITED ABDOMINAL ULTRASOUND COMPARISON: CT 04/11/2025 The gallbladder is hydropic. There is gallbladder sludge though no dominant gallstones. No wall thickening or pericholecystic fluid is seen. No intrahepatic biliary dilatation is evident. The common duct is mildly prominent measuring 7-8 mm no filling defects are visualized within the imaged segment.. The liver is normal in echogenicity. No intrahepatic masses are seen. There is appropriate hepatopetal flow within the main portal vein. The pancreas shows no significant sonographic abnormality. Cursory evaluation of the right kidney reveals no hydronephrosis. A trace amount of free fluid is seen around the liver. US/US abdomen limited IMPRESSION: HYDROPIC GALLBLADDER WITH SLUDGE. MILDLY DISTENDED COMMON DUCT, UNCLEAR ETIOLOGY. LIMITED ULTRASOUND - Ascites survey Real-time ultrasound evaluation of all 4 quadrants and the pelvis was performed. There is a trace of ascites at the right upper quadrant around the liver. No other free fluid is noted. IMPRESSION: MINIMAL, PREDOMINANTLY PERIHEPATIC ASCITES. Impression dictated by: Angelica Ferrer M.D. 04/12/2025 10:10 AM Dictation Location: [place] [address] Electronically authenticated by: [id number] Y Date: 04/12/2025 10:10
--- NOTE | 2025-04-12 07:30 | US_ITS ---
The [address] [address] Patient Name: MALLIKA CRAWFORD MRN: [id number] date: 1945 Sex: F Assigned Patient Location: Current Patient Location: Accession/Order Number: [id number] Exam Date: 04/12/2025 10:04 Report Date: 04/12/2025 10:10 At the request of: MAHSA FIGUEROA NP Procedure: US abdomen limited CLINICAL DATA: Ascites. Dilated gallbladder. History of uterine cancer. LIMITED ABDOMINAL ULTRASOUND COMPARISON: CT 04/11/2025 The gallbladder is hydropic. There is gallbladder sludge though no dominant gallstones. No wall thickening or pericholecystic fluid is seen. No intrahepatic biliary dilatation is evident. The common duct is mildly prominent measuring 7-8 mm no filling defects are visualized within the imaged segment.. The liver is normal in echogenicity. No intrahepatic masses are seen. There is appropriate hepatopetal flow within the main portal vein. The pancreas shows no significant sonographic abnormality. Cursory evaluation of the right kidney reveals no hydronephrosis. A trace amount of free fluid is seen around the liver. US/US right upper quadrant IMPRESSION: HYDROPIC GALLBLADDER WITH SLUDGE. MILDLY DISTENDED COMMON DUCT, UNCLEAR ETIOLOGY. LIMITED ULTRASOUND - Ascites survey Real-time ultrasound evaluation of all 4 quadrants and the pelvis was performed. There is a trace of ascites at the right upper quadrant around the liver. No other free fluid is noted. IMPRESSION: MINIMAL, PREDOMINANTLY PERIHEPATIC ASCITES. Impression dictated by: Angelica Ferrer M.D. 04/12/2025 10:10 AM Dictation Location: [place] [address] Electronically authenticated by: [id number] Y Date: 04/12/2025 10:10
--- NOTE | 2025-04-12 08:19 | PC.NURSE ---
patient is unable to follow commands, could tell commercial lines underwriter first name only, all other words were just mumbling that made no sense. Pt is lethargic, arousable to soft painful stimuli. Patient will look at commercial lines underwriter with blank stare when commercial lines underwriter is talking to pt.
--- NOTE | 2025-04-12 08:39 | CA_ITS ---
Patient Name: MALLIKA CRAWFORD MR#: [id number] : 1945 Exam Date: 04/12/2025 Ordering Doctor: DR ALEXANDR BOWMAN . ECHOCARDIOGRAM REPORT PROCEDURE: CA ECHO DOPPLER COMPLETE INDICATIONS: CHF, diabetes, hypertension COMPARISON: None. DESCRIPTION: COMPLETE ECHOCARDIOGRAM Real-time transthoracic echocardiography with 2D, M-mode, spectral and color flow Doppler performed. QUALITY: Technical quality was good. LEFT VENTRICLE: Normal chamber size. Mild concentric left ventricular hypertrophy. Hyperdynamic systolic function with increased intracavitary gradient up to 32 mmHg. LV EF: Hyperdynamic left ventricular ejection fraction, (75-80%). DIASTOLIC: ATRIAL SEPTUM: LEFT ATRIUM: Normal chamber size. RIGHT ATRIUM: Normal chamber size. RIGHT VENTRICLE: Normal chamber size. Normal right ventricular systolic function. TRICUSPID VALVE: Normal mobility and thickness. No stenosis with trivial regurgitation. Doppler studies reveal mildly (35-45) elevated right sided pressures. RVSP 38 mmHg MITRAL VALVE: Normal mobility and thickness. No evidence of mitral valve stenosis. Mild mitral annular calcification. No mitral regurgitation. AORTIC VALVE: Normal trileaflet appearance. Mildly calcified aortic valve. Normal leaflet mobility. No aortic stenosis. No aortic regurgitation. AORTIC ROOT: Normal diameter and appearance, measuring 3.1 cm. PULMONIC VALVE: Normal thickness and mobility. No stenosis. PERICARDIUM: No evidence of pericardial effusion. IVC: IVC is normal in size, does not fully collapse. PLEURA: CONCLUSION: 1. Mild concentric left ventricular hypertrophy with hyperdynamic systolic function. LVEF is estimated at 75-80%. Increased intracavitary gradients related to hyperdynamic contractility are seen up to 32 mmHg. 2. Normal right ventricular size and systolic function. 3. No significant valvular dysfunction. 4. Mildly elevated right-sided pressures. Adult Echocardiography Procedure Report Left Ventricle LVEDD (3.7 - 5.6 cm): 4.13 cm LVESD (2.2 - 4.0 cm): 2.83 cm LVIVS thickness (0.6 - 1.2 cm): 1.13 cm LVPW thickness (0.5 - 1.0 cm): 1.12 cm e': 0.13 m/s E - e': 6.97 LVOT Max Gradient: 12.32 mm[Hg], 18.27 mm[Hg] LVOT Area (cm2): 2.14 m/s, 1.75 m/s Peak Velocity (LVOT): 2.14 m/s, 1.75 m/s Mean Velocity (LVOT): 1.39 m/s LVOT Diameter 2.02 cm Left Atrium LA Volume Index (2D A2C): 28.90 ml/m2 Left Atrium Systolic Dimension: 4.13 cm Mitral Valve MV E to A Ratio: 0.86 Mitral Valve A-Wave Peak Velocity: 1.09 m/s Mitral Valve E-Wave Peak Velocity: 0.93 m/s Right Ventricle Aorta AO Root Diam: 3.06 cm Aortic Valve AoV Area (Peak Nickolas): 2.65 cm2, 2.65 cm2, 2.17 cm2, 2.17 cm2, 2.36 cm2, 2.36 cm2, 2.88 cm2, 2.88 cm2 AoV Area (VTI): 2.70 cm2, 2.70 cm2 Peak Velocity(Antegrade Flow): 2.60 m/s, 2.39 m/s Peak Gradient(Antegrade Flow): 22.80 mm[Hg], 26.95 mm[Hg] Mean Velocity(Antegrade Flow): 1.76 m/s Mean Gradient(Antegrade Flow): 13.60 mm[Hg] Velocity Time Integral: 57.03 cm Tricuspid Valve Peak Velocity (Regurgitant Flow): 2.73 m/s Pulmonic Valve Peak Gradient: 4.82 mm[Hg], 4.75 mm[Hg] Right Atrium Right Atrium Systolic Pressure: 54.05 ml, 54.05 ml Dictated by: Allen Dominique M.D. on 04/12/2025 at 19:41 Approved by: Allen Dominique M.D. on 04/12/2025 at 19:48
--- NOTE | 2025-04-12 08:40 | CM.NOTE ---
Rounds made with Dr. Lagunas, pt very lethargic. Pt's eyes open but not responding verbally to questions. Dr. Lagunas will reach out to [facility] regarding plan of care.
--- NOTE | 2025-04-12 08:42 | SWNOTE1 ---
SW did reach out to Ch[facility] at [facility] and pt is from there, skilled.
[2025-04-12] MEDS: PANTOPRAZOLE SODIUM 40 MG VIAL IV (09:22)
[2025-04-12] MEDS: LEVOTHYROXINE SODIUM 100 MCG VIAL 12.5 MCG IV (09:23)
[2025-04-12] MEDS: 0.9 % SODIUM CHLORIDE 10 ML VIAL 5 ML IV (09:24)
[2025-04-12] MEDS: METRONIDAZOLE/SODIUM CHLORIDE 500 MG/100 ML PREMIX 100 MG IV ×3 (09:24→21:17)
[2025-04-12] MEDS: 0.9 % SODIUM CHLORIDE 250 ML 10 ML IV ×2 (09:25→09:31)
[2025-04-12] MEDS: DIPHENHYDRAMINE HCL 50 MG/ML VIAL 25 MG IVP (10:38)
[2025-04-12] MEDS: ACETAMINOPHEN 1,000 MG/100 ML PREMIX 400 MG IV (10:38)
[2025-04-12] MEDS: METHYLPREDNISOLONE SOD SUCC PF 40 MG/ML VIAL IVP (10:39)
[2025-04-12 12:14] LABS: Lactate/Lactic Acid 0.6 mmol/L (0.4-2.0)
--- NOTE | 2025-04-12 12:58 | SWNOTE1 ---
SW spoke to nurse and pt's daughter does not want her to return to [facility]. SW to speak with family.
--- NOTE | 2025-04-12 14:54 | SWNOTE1 ---
SW stopped in and spoke to pt's daughter, and pt's 2 sisters. Pt's daughter did voice they do not want her to return to [facility]. She voice when she was in [facility] they had sent referral to [facility] and [facility] and pt ended up wanting to go to [facility]. They now want her to go to [facility]. Pt does already have a 3 day stay from being at [facility]. Daughter did ask about ratios for staff at [facility]. SW unsure and let daughter know that SW can call Lulu or Bryan at [facility] and have them call her and possibly set up a tour for her to go over there and speak with them. Daughter Debbi would like that. GILBERTO advised we will take it one day at a time and SW to send referral to [facility]. GILBERTO called Bryan at [facility] and she will call the daughter and is familiar with pt from looking over referral when she was at [facility]. Referral sent to [facility]. Referral included face sheet, ED note, H&P, provider notes, case management report, nursing notes, diagnostic imaging, med list, and PT/OT notes.
[2025-04-12] MEDS: HYDROMORPHONE HCL 0.5 MG/0.5 ML SYRINGE IV (16:55)
[2025-04-12] MEDS: FUROSEMIDE 40 MG/4 ML VIAL IVP (17:04)
[2025-04-12 17:15] LABS: Hematocrit 32.2 % (36.0-48.0); Hemoglobin 9.9 g/dL (12.0-16.0); Mean Corpuscular HGB Conc 30.7 g/dL (29.9-35.2); Mean Corpuscular Hemoglobin 26.5 pg (26.7-34.0); Mean Corpuscular Volume 86.3 fL (81.0-99.0); Mean Platelet Volume 9.2 fL (9.5-13.5); Platelet Count 422 10^3/uL (150-450); Red Blood Count 3.73 10^6/uL (4.20-5.40); Red Cell Distribution Width 17.9 % (11.0-15.0); White Blood Count 26.9 10^3/uL (4.0-11.0)
[2025-04-12 17:23] LABS: Anion Gap 32.6; BUN Creatinine Ratio 34.9; Calcium 9.7 mg/dL (8.5-10.1); Carbon Dioxide 9.8 mmol/L (21.0-32.0); Chloride 98 mmol/L (98-107); Estimated GFR (African America 25 (>=60 mL/min/1.73m^2); Estimated GFR (Non-African Ame 20 (>=60 mL/min/1.73m^2); Glucose 147 mg/dL (74-106); Sodium 134 mmol/L (136-145)
[2025-04-12 17:35] LABS: Potassium 6.4 mmol/L (3.5-5.1)
[2025-04-12] MEDS: INSULIN REGULAR, HUMAN (100 UNIT/ML) 10 ML MDV 10 UNIT IV (18:25)
[2025-04-12] MEDS: CALCIUM GLUCONATE 1,000 MG/10 ML VIAL 1000 MG IVP (18:25)
[2025-04-12] MEDS: SODIUM BICARBONATE 8.4% 50 MEQ/50 ML VIAL IV (18:26)
[2025-04-12] MEDS: DEXTROSE 50 %-WATER 25 GM/50 ML SYRINGE IV (18:26)
[2025-04-12 20:27] LABS: Anion Gap 29.6; BUN Creatinine Ratio 35.1; Calcium 9.9 mg/dL (8.5-10.1); Carbon Dioxide 12.3 mmol/L (21.0-32.0); Chloride 99 mmol/L (98-107); Estimated GFR (African America 25 (>=60 mL/min/1.73m^2); Estimated GFR (Non-African Ame 20 (>=60 mL/min/1.73m^2); Glucose 197 mg/dL (74-106); Potassium 5.9 mmol/L (3.5-5.1); Sodium 135 mmol/L (136-145)
--- NOTE | 2025-04-13 01:34 | PC.NURSE ---
Upon entering patients room, Patient opens eyes to name being called. Patient says Hi to nurse helping to turn her. When turned patient says Ouch . When asked to lift her head up to reposition pillow she does. Patient repositioned to left side at this time.
[2025-04-13] MEDS: METRONIDAZOLE/SODIUM CHLORIDE 500 MG/100 ML PREMIX 100 MG IV ×4 (03:09→22:12)
--- NOTE | 2025-04-13 03:31 | PC.NURSE ---
Patient has had no output in valencia catheter since 189904/12/2025. Patient bladder scanned for 353ml's. Nurse deflated balloon to catheter and moved it around with no results. Balloon reinflated with 10cc's saline. Valencia catheter irrigated with 10cc saline for and immediate return of Dark Brown urine with sediment.
[2025-04-13 04:00] VITALS: BP 108/61; PULSE 90; TEMP 36.7; O2SAT 93
--- NOTE | 2025-04-13 06:11 | P.PN_ITS ---
Progress Note: Subjective Subjective Interval history: Patient is a more awake today, she did try to speak but understanding her was difficult Exam Constitutional Vital Signs, click to edit/add: Last Vital Signs Temp 98.1 F 04/13/25 04:00 Pulse 90 04/13/25 04:00 Resp 18 04/13/25 04:00 BP 108/61 04/13/25 04:00 Pulse Ox 93 L 04/13/25 04:00 O2 Del Method Room Air 04/13/25 04:00 Documenting provider has reviewed patient's vital signs: yes Common normals: apparent distress (Unresponsive except to painful stimuli) Chest Common normals: inspection of chest normal Respiratory Common normals: abnormal respiratory effort (Mild respiratory distress) and not clear to ascultation bilaterally Auscultation: rales (In bases) and diminished lung sounds (Shallow respirations) Cardio Common normals: regular rate and regular rhythm; murmurs detected GI Common normals: Normal to inspection, nondistended, normoactive bowel sounds present; negative for soft to palpation (Firm abdomen) and tender (Diffusely tender with rebound tenderness) Extremity Common normals: abnormal to inspection (1+ edema) Neuro Common normals: not oriented x3 and CN's II-XII not intact bilaterally (Unable to assess) Sensorium/orientation: orientation impaired, lethargic, somnolent and obtunded; not awake, not alert, not oriented to person, not oriented to place and not oriented to time Progress Note: Objective Labs Labs: Short CBC 04/12/25 04/12/25 Range/Units 05:23 16:54 WBC 24.8 H 26.9 H (4.0-11.0) 10^3/uL Hgb 6.8 L* 9.9 L (12.0-16.0) g/dL Hct 22.3 L* 32.2 L (36.0-48.0) % Plt Count 398 422 (150-450) 10^3/uL BMP 04/12/25 04/12/25 04/12/25 05:23 16:54 20:07 Sodium 135 L 134 L 135 L Potassium 5.7 H 6.4 H* 5.9 H Chloride 99 98 99 Carbon Dioxide 10.8 L 9.8 L 12.3 L BUN 79.0 H* 81.0 H* 81.0 H* Creatinine 2.10 H 2.32 H 2.31 H Glucose 108 H 147 H 197 H Calcium 9.2 9.7 9.9 Liver Function 04/12/ Range/Units 05:23 Total Bilirubin 0.3 (0.2-1.0) mg/dL AST 25 (15-37) U/L ALT 10 L (14-59) U/L Alkaline Phosphatase 94 (46-116) U/L Albumin 1.5 L (3.4-5.0) g/dL Progress Note: A&P Assessment and Plan (1) ZION (acute kidney injury): (2) Altered mental status: (3) Generalized weakness: (4) Metastatic cancer: (5) Anemia: (6) GI bleed: (7) Cardiac murmur: (8) Gastric ulcer: (9) Type 2 diabetes mellitus: (10) Uterine cancer: (11) Hypertension: (12) Hyperphosphatemia: (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: (14) Coagulopathy: (15) Acute pancreatitis: (16) Hyperkalemia: (17) Hyponatremia: (18) Bandemia: (19) Leukocytosis: (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: (21) Bladder outlet obstruction: Plan Admission findings: Altered mental status, leukocytosis with bandemia, hyponatremia, acute kidney injury stage I, (, baseline creatinine 1.12, creatinine on admission of 2.07 which is 184.8% above baseline with decreased urine output in the last 6 hours with palpation at stage I acute kidney injury), hyperkalemia, elevated lipase, elevated INR and an elevated BNP consistent with sepsis causing multisystem organ dysfunction, source of infection likely intra- abdominal with the abdominal exam as outlined above, complicated by immune deficiency from metastatic uterine cancer Altered mental status due to sepsis, likely intra-abdominal source,-leukocytosis persisting slightly improved, adjusted antibiotic dosing to higher level, blood cultures pending, ultrasound of the abdomen with hydrops gallbladder, white blood cell count is improved we will maintain current antibiotic dosing. Discussed case with family, there is no great improvement overnight with initial antibiotic dosing and the findings on ultrasound, recommending transfer to tertiary care facility, she had her previous workup at [facility] still trying to arrange transfer there, patient is excepted there waiting bed Acute combined congestive heart failure with heart murmur-check echocardiogram good ejection fraction, somewhat hyperdynamic-swelling unchanged, BNP up slightly-continue to monitor BNP elevation may be in the secondary effect of the acute kidney injury, edema may be on the basis of severe protein calorie malnutrition Hyponatremia secondary to fluid status-monitor daily-improved to normal Acute kidney injury stage I as outlined above-gentle hydration Hyperkalemia-improved some, continue to monitor, improved from previous day Metabolic acidosis secondary to sepsis as outlined above-recommending transfer as outlined above Acute pancreatitis-discussed with daughter no history of pancreatitis in the past, may be related to metastatic disease, CT scan was unremarkable for the pancreas ultrasound is pending, n.p.o. status Coagulopathy secondary to sepsis as outlined above-monitor daily L Bladder outlet obstruction-over 1000 cc-maintain Bedoya catheter Hyperphosphatemia-likely secondary to the acute kidney injury-repeat in a.m.- patient currently unable to take orals, phosphate slightly higher than previous day continue to monitor, may need dialysis Acute blood loss anemia-likely GI source-check stool for occult blood, type cross and transfuse 2 units-blood count down slightly from previous day but not to the point of requiring further transfusion History of hypertension-holding current antihypertensive medications Severe protein calorie malnutrition-patient may need line placement and TPN CODE STATUS-discussed with daughter, CODE STATUS would be DNR-[facility] Admission status: Patient was admitted with altered mental status, progressively worsened overnight time, diagnosed with sepsis, likely severe all the labs are still pending, with acute kidney injury, likely intra-abdominal source with acute pancreatitis, complicated by [place] by immune deficiency secondary to metastatic uterine cancer, medically necessary treatment will span 2 midnights, As a minimum, inpatient status Urinary Catheter Management Urinary Catheter Management Urethral: Cath placed during this visit: yes Urethral indwelling: Yes Reason for continuing: acute urinary retention Insertion date: 04/11/25
[2025-04-13 06:16] LABS: INR 1.21; Prothrombin Time 12.6 sec (9.0-11.6)
[2025-04-13 06:19] LABS: Ammonia 32 umol/L (11-32)
[2025-04-13 06:29] LABS: Hematocrit 28.2 % (36.0-48.0); Hemoglobin 8.9 g/dL (12.0-16.0); Mean Corpuscular HGB Conc 31.6 g/dL (29.9-35.2); Mean Corpuscular Hemoglobin 26.6 pg (26.7-34.0); Mean Corpuscular Volume 84.4 fL (81.0-99.0); Mean Platelet Volume 9.3 fL (9.5-13.5); Platelet Count 418 10^3/uL (150-450); Red Blood Count 3.34 10^6/uL (4.20-5.40); Red Cell Distribution Width 18.4 % (11.0-15.0); White Blood Count 26.4 10^3/uL (4.0-11.0)
[2025-04-13 06:31] LABS: Alanine Aminotransferase 7 U/L (14-59); Albumin Globulin Ratio 0.3; Albumin Level 1.5 g/dL (3.4-5.0); Alkaline Phosphatase 127 U/L (46-116); Anion Gap 29.9; Aspartate Amino Transferase 20 U/L (15-37); BUN Creatinine Ratio 36.4; Bilirubin Total 0.4 mg/dL (0.2-1.0); Carbon Dioxide 11.9 mmol/L (21.0-32.0); Chloride 101 mmol/L (98-107); Estimated GFR (African America 25 (>=60 mL/min/1.73m^2); Estimated GFR (Non-African Ame 20 (>=60 mL/min/1.73m^2); Globulin 4.4 g/dL; Glucose 142 mg/dL (74-106); Magnesium 2.3 mg/dL (1.8-2.4); Potassium 5.8 mmol/L (3.5-5.1); Sodium 137 mmol/L (136-145); Total Protein 5.9 g/dL (6.4-8.2)
[2025-04-13 06:38] LABS: Phosphorus 7.6 mg/dL (2.6-4.7)
[2025-04-13 07:46] VITALS: BP 110/56; PULSE 86; TEMP 37.4; O2SAT 92
[2025-04-13 08:47] LABS: Band Neutrophils Absolute 0.5 10^3/uL (0.0-0.3); Lymphocytes Absolute Manual 1.84 10^3/uL (1.20-3.80); Monocytes Absolute Manual 1.32 10^3/uL (0.30-0.80)
[2025-04-13 08:49] LABS: Anisocytosis 1+
[2025-04-13] MEDS: 0.9 % SODIUM CHLORIDE 10 ML VIAL 5 ML IV (09:29)
[2025-04-13] MEDS: PANTOPRAZOLE SODIUM 40 MG VIAL IV (09:29)
[2025-04-13] MEDS: 0.9 % SODIUM CHLORIDE 250 ML 10 ML IV (09:29)
[2025-04-13] MEDS: ACETAMINOPHEN 1,000 MG/100 ML PREMIX 400 MG IV (09:29)
[2025-04-13] MEDS: LEVOTHYROXINE SODIUM 100 MCG VIAL 12.5 MCG IV (09:29)
--- NOTE | 2025-04-13 09:39 | CM.NOTE ---
Rounds made with Dr. Lagunas, pt does open eyes to speech this AM but remains lethargic and not answering questions. Daughter at bedside and updated on gallbladder and possible need for surgery, pt will transfer to [facility] (daughter in agreement). Daughter very tearful but understands the extent of pt illness.
--- NOTE | 2025-04-13 09:50 | CM.NOTE ---
[facility] updated that pt will transfer to [facility].
[2025-04-13 10:39] VITALS: O2SAT 94
[2025-04-13] MEDS: HYDROMORPHONE HCL 0.5 MG/0.5 ML SYRINGE IV (13:31)
[2025-04-13 16:18] VITALS: BP 128/57; PULSE 76; TEMP 37.2; O2SAT 93
[2025-04-13 19:22] VITALS: O2SAT 95
[2025-04-13 19:44] VITALS: BP 125/56; PULSE 76; TEMP 36.9; O2SAT 94
[2025-04-13] MEDS: LEVOFLOXACIN IN DEXTROSE 5 % 750 MG/150 ML PREMIX 100 MG IV (22:11)
[2025-04-13] MEDS: CEFTAZIDIME 2,000 MG in 0.9 % SODIUM CHLORIDE 100 ML 200 MG IV (22:12)
== END 2025-04-13 23:50 | disposition short-term general hospital (02) | DRG 871 ==
LOC: ER 17:04 → MS 19:39
PROVIDERS: Internal Medicine; Nurse Practitioner; Registered Nurse; Admitting Provider Family Medicine; Emergency Provider Emergency Medicine; Visit Provider Family Medicine
DX: A41.9 Sepsis, unspecified organism (principal); E43 Unspecified severe protein-calorie malnutrition; I50.41 Acute combined systolic (congestive) and diastolic (congestive) heart failure; K85.90 Acute pancreatitis without necrosis or infection, unspecified; K25.4 Chronic or unspecified gastric ulcer with hemorrhage; N17.9 Acute kidney failure, unspecified; C79.81 Secondary malignant neoplasm of breast; E87.1 Hypo-osmolality and hyponatremia; D84.9 Immunodeficiency, unspecified; D68.9 Coagulation defect, unspecified; D62 Acute posthemorrhagic anemia; K82.1 Hydrops of gallbladder; E87.20 Acidosis, unspecified; R53.1 Weakness; C55 Malignant neoplasm of uterus, part unspecified; E87.5 Hyperkalemia; I11.0 Hypertensive heart disease with heart failure; N32.0 Bladder-neck obstruction; E83.39 Other disorders of phosphorus metabolism; R65.20 Severe sepsis without septic shock; E11.9 Type 2 diabetes mellitus without complications; Z68.22 Body mass index [BMI] 22.0-22.9, adult
CPT/HCPCS: 36415; 36430; 70450; 71045; 74176; 76705; 80048; 80053; 81001; 82140; 83605; 83690; 83735; 83880; 84100; 84436; 84443; 84484; 85007; 85025; 85027; 85610; 85730; 86140; 86850; 86900; 86901; 86923; 93306; 94667; 94761; 96360; 99285; G0328; J0131; J0612; J0650; J0713; J1171; J1200; J1817; J1836; J1938; J2919; P9016